=== PATIENT | female | born 2000 | race Caucasian/White ===

== ENCOUNTER 2024-07-03 23:27 | Inpatient (IN) | payer BC, SELFPAY ==
[2024-07-03 15:29] VITALS: BP 147/91
[2024-07-03 16:04] LABS: HCG, Serum Qualitative Screen Negative
[2024-07-03 16:13] LABS: ALT (SGPT) 38 U/L (0-35); AST (SGOT) 37 U/L (14-36); Albumin 4.8 g/dl (3.5-5.0); Alkaline Phosphatase 66 U/L (38-126); Blood Urea Nitrogen 8 mg/dl (7-17); Carbon Dioxide 23 mmol/L (22-30); Chloride 94 mmol/L (98-107); Glucose 131 mg/dl (70-99); Lipase 122 U/L (23-300); Potassium 4.8 mmol/L (3.5-5.1); Sodium 133 mmol/L (135-145); Total Bilirubin 0.5 mg/dl (0.2-1.3); eGFR > 60.00
[2024-07-03 16:49] LABS: % Basophils 0.3 % (0-2); % Immature Granulocytes 0.7 % (0-0.5); % Lymphocytes 5.9 % (20.5-51.1); % Monocytes 3.4 % (1.7-9.3); % Neutrophils 89.7 % (42.2-75.2); Absolute Basophils 0.1 10^3/uL (0-0.2); Absolute Immature Granulocytes 0.2 10^3/uL (0-0.05); Absolute Lymphocytes 1.4 10^3/uL (1.2-3.4); Absolute Monocytes 0.8 10^3/uL (0.1-0.6); Absolute Neutrophils 21.9 10^3/uL (1.4-6.5); Hematocrit 43.4 % (37.0-47.0); Mean Corp Hgb Conc. 34.6 g/dL (33.0-37.0); Mean Corpuscular Hgb 27.8 pg (27.0-31.0); Mean Corpuscular Volume 80.4 fL (81.0-99.0); Mean Platelet Volume 10.1 fL (7.4-10.4); Nucleated Red Blood Cells % 0 %; Platelet Count 354 10^3/uL (130-400); Red Cell Dist. Width 11.9 % (11.5-14.5); White Blood Cell Count 24.4 10^3/uL (4.8-10.8)
--- NOTE | 2024-07-03 17:15 | ED.GENMED ---
History of Present Illness
General
Chief Complaint: Abdominal Pain
Time Seen by Provider: 07/03/24 16:48
History of Present Illness
History of Present Illness:
Patient is a 24-year-old woman recently diagnosed with strep currently on amoxicillin presenting to the emergency department with abdominal pain. Patient states that last night she developed a heartburn sensation. She did have a cheeseburger last
night. She has tried multiple ezec-rje-eprfegj medicine such as Gas-X, Tums, Nexium without relief. She then developed some vomiting and nausea. She has had decreased p.o. secondary to the nausea. No family members with similar symptoms.
Patient does state that she is currently on amoxicillin and has a few days left. Her sister did get her gallbladder removed at the age of 17. She has occasionally had the symptoms after eating but none recently. No fevers or chills. No
difficulty breathing. No diarrhea. No urinary symptoms. No vaginal discharge. She has had her appendix removed but otherwise no surgeries. No family history of cardiac disease or sudden cardiac . She does state that since she has been
here she has been able to tolerate sips of water.
Phy Exam
Physical Exam
Physical Exam:
GENERAL: in no acute distress
HEENT: normocephalic, extraocular movements intact, moist oral mucosa
NECK: normal inspection
RESPIRATORY: no respiratory distress, clear to auscultation bilaterally
CARDIOVASCULAR: regular rate and rhythm
ABDOMEN/: soft, non-distended, epigastric and right upper quadrant tenderness to palpation, no rebound or guarding
EXTREMITIES: non-tender, no edema/swelling
NEUROLOGIC: awake and alert, moves all extremities
SKIN: warm
Course
Orders/Labs/Results
Orders:
Orders
07/03/24 15:32
Test Result ONCE
07/03/24 15:36
Complete Blood Count/With Diff Urgent
Comprehensive Metabolic Panel Urgent
HCG, Serum Qualitative Screen Urgent
Lipase Urgent
07/03/24 17:06
Mag Hydrox/Al Hydrox/Simeth [Maalox] 30 ml PO NOW STA
07/03/24 17:11
Famotidine [Pepcid] 20 mg PO NOW STA
Ondansetron HCl [Zofran] 4 mg PO NOW STA
Viscous Lidocaine 2% [Xylocaine Viscous Cup] 15 ml PO ONCE ONE
US Abdomen Complete/Upper Urgent
Comment:
Reason For Exam: RUQ and epigastic pain
07/03/24 19:34
Piperacillin/Tazo 4.5 Gram [Zosyn] 4.5 gram in 100 ml IV NOW
Abnormal Lab Results
07/03/24
15:36
WBC 24.4 H 10^3/uL
(4.8-10.8)
MCV 80.4 L fL
(81.0-99.0)
Abs Immat Gran (auto) 0.2 H 10^3/uL
(0-0.05)
Absolute Neuts (auto) 21.9 H 10^3/uL
(1.4-6.5)
Absolute Monos (auto) 0.8 H 10^3/uL
(0.1-0.6)
Immature Gran % 0.7 H %
(0-0.5)
Neutrophils % 89.7 H %
(42.2-75.2)
Lymphocytes % 5.9 L %
(20.5-51.1)
Sodium 133 L mmol/L
(135-145)
Chloride 94 L mmol/L
(98-107)
Glucose 131 H mg/dl
(70-99)
AST 37 H U/L
(14-36)
ALT 38 H U/L
(0-35)
07/03/24 15:36
07/03/24 15:36
Vital Signs
Initial and Last Documented VS:
Initial Vital Signs
Temp Pulse Resp BP Pulse Ox
97.6 F 97 16 147/91 98
07/03/24 15:29 07/03/24 15:29 07/03/24 15:29 07/03/24 15:07/03/24 15:29
Last Documented Vital Signs
Temp Pulse Resp BP Pulse Ox
97.6 F 97 16 147/91 98
07/03/24 15:29 07/03/24 15:29 07/03/24 15:29 07/03/24 15:29 07/03/24 15:29
MDM/Problems Addressed
Differential Diagnosis Includes:
Patient is a 24-year-old woman presenting to the emergency department with 1 day of epigastric and right upper quadrant abdominal pain. Vitals are unremarkable and exam does show woman who is well-appearing with right upper quadrant and epigastric
tenderness. Differential is broad but consists of cholecystitis versus pancreatitis versus gastritis versus peptic ulcer disease. Will check blood work, test. Will obtain ultrasound. Will give GI cocktail and antiemetics.
*Critical Care Note
Total Time (30-74mins, 75-104mins- exclusive of procedures): Not Applicable
Update Note
Update Note:
On reevaluation patient states that the heartburn has gone away however she still having residual right upper quadrant tenderness. Ultrasound per my interpretation with gallbladder wall thickening as well as a large gallstone. Per the official
read that is consistent with cholecystitis. Discussed with general surgery who accepted patient to their service. Will start IV antibiotics.
ED Attending Note
-
Portions of this chart may have been created with voice recognition software.� Occasional wrong word or��sound alike� substitutions may have occurred due to the inherent limitations of voice recognition software.
Discharge Plan
Departure
Prescriptions:
No Action
azithromycin 200 MG/5 ML suspension for reconstitution
200 mg PO DAILY Qty: 20 0RF
Rx Instructions:
1 teaspoon daily for 4 days
Referrals:
Anabela Fagan MD [Family Provider] -
Interventions
Interventions:
MX-Hmuxmx-Tgbwrbgvix Assessment Last Done: 07/03/24 19:02
Discharge Date and Time
Print Language: FRISIAN
[2024-07-03] MEDS: MAALOX 30 ML PO (17:24)
[2024-07-03] MEDS: ZOFRAN 4 MG PO (17:25)
[2024-07-03] MEDS: PEPCID 20 MG PO (17:25)
[2024-07-03] MEDS: XYLOCAINE VISCOUS CUP 15 ML PO (17:25)
[2024-07-03] MEDS: ZOSYN 100 IV (19:46)
[2024-07-03 19:55] VITALS: BP 132/92
[2024-07-04] VITALS: BP 120/80
[2024-07-04] MEDS: FLUSH (NSS) 1 FLUSH IV (00:15)
[2024-07-04] MEDS: DILAUDID 0.25 MG IV ×2 (00:16→15:28)
[2024-07-04 01:42] VITALS: BP 129/96
[2024-07-04 01:43] VITALS: BMI 29.6
[2024-07-04] MEDS: NSS 1000 IV ×2 (02:24→16:11)
[2024-07-04] MEDS: ZOSYN 50 IV ×4 (02:24→20:09)
--- NOTE | 2024-07-04 02:50 | HPS.HSE ---
Family Physician
-
Family Physician: Anabela Fagan
Chief Complaint
-
'Abdomen pain'
History of Present Illness
24 y/o patient presents to ER with the complain of abdomen pain. Reports she developed heart burn sensation yesterday evening 07/02 after having cheeseburger. She got nauseous which wasn't relieved with Gas-X, Tums, Nexium. She then developed some
vomiting along with feeling nausea. Reports she has had this symptoms in the past after eating but nothing recently till now. Reports chills, no fever, Denies chest pain, shortness of breath. Denies any blood in the emesis or BM. Voiding without
difficulty. Sister's Gallbladder was removed at the age of 17. Patient recently diagnosed with Strep and is on antibiotic Amoxicillin.
Medical History
Past Medical History
Past Medical History: Reports None
Past Surgical History: Reports Appendectomy
Social History
Tobacco: Non-smoker
Alcohol: None
Drug: None
Living: With Family
Family History
Family History: Not pertinent
Allergies / Home Medications
Allergies reflects when Allergies were last updated in [facility] [employer].
Home Medications with original date entered in [facility]
Allergy/Medication List:
Allergies
Allergy/AdvReac Type Severity Reaction Status Date / Time
environmental allergies Allergy nasal Uncoded 08/27/14 07:23
symptoms
Home Medications
norethindrone 1 mg-ethinyl estradiol 20 mcg (24)-iron 75 mg (4) tablet (Blisovi 24 Fe) 1 tab PO HS Hormonal Agent 07/03/24
Review of Systems
-
History Source: Patient
A 12 point ROS was completed and negative except as noted: Yes
Constitutional: Reports Chills
EENT: Reports No Symptoms
Respiratory: Reports No Symptoms
Cardiac: Reports No Symptoms
Abdomen/GI: Reports Abdominal Pain, Nausea and Vomiting
: Reports No Symptoms
Musculoskeletal: Reports No Symptoms
Skin: Reports No Symptoms
Neurological: Reports No Symptoms
Endocrine: Reports No Symptoms
Hematologic/Lymphatic: Reports No Symptoms
Psych: Reports No Symptoms
Physical Exam
Vital Signs
Vital Signs
Temp Pulse Resp BP Pulse Ox
97.5 F 108 16 129/96 95
07/04/24 01:42 07/04/24 01:42 07/04/24 01:42 07/04/24 01:42 07/04/24 01:42
Physical Exam
General: Well Developed, Well Nourished and No Apparent Distress
HEENT: NormoCephalic, Moist mucous membranes and Atraumatic
Respiratory: Clear and Non Labored Respirations
Cardiac: S1/S2 and Regular Rhythm
Breast: Deferred by me
GI: Soft, Non Distended, Normal Bowel Sounds and Tender (epigastric, RUQ)
Rectal: Deferred by Provider
Genito-urinary: Deferred by me
Musculoskeletal: No Clubbing, No Cyanosis and No Edema
Skin: Warm and Dry
Neuro: Awake, AO x 3 and Nonfocal/grossly intact
Hematologic/Lymphatic: No Lymphadenopathy
Psych: Calm and Intact Judgment/Insight
Laboratory Results
-
07/03/24 15:36
07/03/24 15:36
Laboratory Results
Total Bilirubin 0.5 mg/dl (0.2-1.3) 07/03/24 15:36
AST 37 U/L (14-36) H 07/03/24 15:36
ALT 38 U/L (0-35) H 07/03/24 15:36
Alkaline Phosphatase 66 U/L (38-126) 07/03/24 15:36
Lipase 122 U/L (23-300) 07/03/24 15:36
Data Reviewed
-
Ultrasound: Report Reviewed by me
Lab Data: Labs Reviewed by me
Impression/Plan
-
24 y/o patient presenting to ER with the complaint of 1 day of epigastric and right upper quadrant abdominal pain associated with nausea, vomiting and chills.
# Abdomen pain likely due to Acute cholecystitis.
-US abdomen: Large gallstone in gallbladder neck with associated gallbladder wall thickening and pericholecystic fluid concerning for acute cholecystitis
-WBC 24.4
-maintain NPO
-Continue IV fluids
-Continue IV Dilaudid, Toradol
-Continue IV Zofran
-Continue IV Zosyn
-Admit to Dr. Simmons
# Hyponatremia likely due to vomiting
-continue IV fluids
-labs in AM
#Diagnosed Strep throat outpatient
-continue IV Zosyn
Full code
DVT Prophylaxis: SCD's
[2024-07-04 07:43] VITALS: BP 119/78
[2024-07-04 08:51] LABS: Hematocrit 43.6 % (37.0-47.0); Hemoglobin 15.2 g/dL (12.0-16.0); Mean Corp Hgb Conc. 34.9 g/dL (33.0-37.0); Mean Corpuscular Hgb 28.7 pg (27.0-31.0); Mean Corpuscular Volume 82.4 fL (81.0-99.0); Mean Platelet Volume 10.5 fL (7.4-10.4); Platelet Count 314 10^3/uL (130-400); Red Blood Cell Count 5.29 10^6/uL (4.20-5.40); Red Cell Dist. Width 12.1 % (11.5-14.5); White Blood Cell Count 12.8 10^3/uL (4.8-10.8)
[2024-07-04 10:05] LABS: Blood Urea Nitrogen 9 mg/dl (7-17); Calcium 9.5 mg/dl (8.4-10.2); Carbon Dioxide 22 mmol/L (22-30); Chloride 101 mmol/L (98-107); Estimated Creatinine Clearance 96 ml/min; Glucose 89 mg/dl (70-99); Potassium 4.5 mmol/L (3.5-5.1); Sodium 138 mmol/L (135-145); eGFR > 60.00
[2024-07-04] MEDS: TORADOL 10 MG IV ×2 (10:34→23:22)
--- NOTE | 2024-07-04 13:37 | W.PN.GS2 ---
Today's Communication / Plan
-
clears
abx
OR Saturday
Assessment / Plan
-
24 y/o patient presenting to ER with the complaint of 1 day of epigastric and right upper quadrant abdominal pain associated with nausea, vomiting and chills with acute cholecystitis.
- Continue on clear liquids
- Continue IV antibiotics and IVFs
- Plan for OR Saturday
Subjective Data
-
Date of Service: July 04, 2024
Patient states she has right sided pain. She denies nausea or vomiting. She is tolerating clears.
Objective Data
-
Intake and Output
07/03/24 07/04/24 07/05/24
06:59 06:59 06:59
Intake Total 0 / 0
Balance 0 / 0
Intake:
Oral fluids 0 / 0
Vital Signs
Temp Pulse Resp BP Pulse Ox
98.8 F 75 16 119/78 100
07/04/24 07:43 07/04/24 07:43 07/04/24 07:43 07/04/24 07:43 07/04/24 09:18
Lab Results
07/04/24 08:03
07/04/24 08:03
Calcium 9.5 mg/dl (8.4-10.2) 07/04/24 08:03
Total Bilirubin 0.5 mg/dl (0.2-1.3) 07/03/24 15:36
AST 37 U/L (14-36) H 07/03/24 15:36
ALT 38 U/L (0-35) H 07/03/24 15:36
Alkaline Phosphatase 66 U/L (38-126) 07/03/24 15:36
Total Protein 8.0 g/dl (6.3-8.2) 07/03/24 15:36
Albumin 4.8 g/dl (3.5-5.0) 07/03/24 15:36
Physical Exam
-
AAOX3
Abdominal exam: mild tenderness RUQ, soft, non-distended
[2024-07-04 15:45] VITALS: BP 106/68
--- NOTE | 2024-07-04 17:23 | W.PN.UPDATE ---
Update Note
Progress Note Update
Agree with MIXER OPERATOR VACUUM PAN SALT's admission H&P and above PA progress note.
24-year-old female with acute calculus cholecystitis. Mild left lower quadrant tenderness on exam. Mild leukocytosis. Antibiotics, pain control, and clear liquids for now. Anticipate laparoscopic cholecystectomy on Saturday. Patient agreeable.
[2024-07-04 23:30] VITALS: BP 126/78
[2024-07-05] MEDS: ZOSYN 50 IV ×4 (02:13→20:09)
[2024-07-05 07:40] VITALS: BP 93/58
[2024-07-05] MEDS: NSS 1000 IV ×2 (07:41→22:49)
[2024-07-05] MEDS: NSS IV (07:41)
[2024-07-05 09:57] LABS: INR 1.04; PT 13.4 Sec (11.4-14.6)
[2024-07-05 09:58] LABS: APTT 29.3 Sec (23.4-35.0)
[2024-07-05 10:24] LABS: ALT (SGPT) 38 U/L (0-35); AST (SGOT) 30 U/L (14-36); Albumin 3.8 g/dl (3.5-5.0); Alkaline Phosphatase 58 U/L (38-126); Blood Urea Nitrogen 10 mg/dl (7-17); Calcium 9.2 mg/dl (8.4-10.2); Carbon Dioxide 24 mmol/L (22-30); Chloride 103 mmol/L (98-107); Estimated Creatinine Clearance 78 ml/min; Glucose 83 mg/dl (70-99); Potassium 4.1 mmol/L (3.5-5.1); Sodium 140 mmol/L (135-145); Total Bilirubin 0.8 mg/dl (0.2-1.3); Total Protein 6.6 g/dl (6.3-8.2); eGFR > 60.00
[2024-07-05 10:25] LABS: % Basophils 0.3 % (0-2); % Eosinophils 1.7 % (0-6); % Immature Granulocytes 0.4 % (0-0.5); % Lymphocytes 28.7 % (20.5-51.1); % Monocytes 9.3 % (1.7-9.3); % Neutrophils 59.6 % (42.2-75.2); Absolute Eosinophils 0.2 10^3/uL (0-0.7); Absolute Lymphocytes 2.7 10^3/uL (1.2-3.4); Absolute Monocytes 0.9 10^3/uL (0.1-0.6); Absolute Neutrophils 5.6 10^3/uL (1.4-6.5); Hemoglobin 13.7 g/dL (12.0-16.0); Mean Corp Hgb Conc. 33.4 g/dL (33.0-37.0); Mean Corpuscular Hgb 28.5 pg (27.0-31.0); Mean Corpuscular Volume 85.4 fL (81.0-99.0); Mean Platelet Volume 10.6 fL (7.4-10.4); Nucleated Red Blood Cells % 0 %; Platelet Count 233 10^3/uL (130-400); Red Cell Dist. Width 12.2 % (11.5-14.5); White Blood Cell Count 9.4 10^3/uL (4.8-10.8)
[2024-07-05] MEDS: TORADOL 10 MG IV ×2 (11:50→21:43)
--- NOTE | 2024-07-05 12:00 | W.PN.GS2 ---
Today's Communication / Plan
-
low fat
npo midnight
surgery AM
Assessment / Plan
-
24 y/o patient presenting to ER with the complaint of 1 day of epigastric and right upper quadrant abdominal pain associated with nausea, vomiting and chills with acute cholecystitis.
- Advance to low fat
- NPO at midnight
- Continue IV antibiotics and IVFs
- Plan for OR tomorrow
Subjective Data
-
Date of Service: July 05, 2024
Patient states her pain is the same. She has no nausea. She tolerated clears.
Objective Data
-
Intake and Output
07/04/24 07/05/24 07/06/24
06:59 06:59 06:59
Intake Total 0 / 0 2305 / 2305
Balance 0 / 0 2305 / 2305
Intake:
Oral fluids 0 / 0 1380 / 1380
IV fluids (Total) 825 / 825
IV piggybacks 100 / 100
Other:
Number of approximated MODERATE 3
amounts of urine
Vital Signs
Temp Pulse Resp BP Pulse Ox
98.1 F 65 16 93/58 100
07/05/24 07:40 07/05/24 07:40 07/05/24 07:40 07/05/24 07:40 07/05/24 07:52
Lab Results
07/05/24 08:56
07/05/24 08:56
Calcium 9.2 mg/dl (8.4-10.2) 07/05/24 08:56
Total Bilirubin 0.8 mg/dl (0.2-1.3) 07/05/24 08:56
AST 30 U/L (14-36) 07/05/24 08:56
ALT 38 U/L (0-35) H 07/05/24 08:56
Alkaline Phosphatase 58 U/L (38-126) 07/05/24 08:56
Total Protein 6.6 g/dl (6.3-8.2) 07/05/24 08:56
Albumin 3.8 g/dl (3.5-5.0) 07/05/24 08:56
Physical Exam
-
AAOX3
Abdominal exam: mild tenderness RUQ, soft, non-distended
[2024-07-05] MEDS: ZOFRAN 4 MG IV (13:53)
[2024-07-05 15:00] VITALS: BP 95/57
[2024-07-05 18:21] VITALS: BP 120/73
--- NOTE | 2024-07-05 18:45 | PTCARENOTE ---
Patient received from 3W in bed; Family at bedside; Patient states pain is mild but tolerable for her; Patient denies nausea at this time; Call franco within reach; Bed in lowest position, wheels locked; Care ongoing
[2024-07-05 23:11] VITALS: BP 104/66
[2024-07-06] VITALS (8 sets, daily range): BP systolic 110–120; BP diastolic 66–76
[2024-07-06] MEDS: ZOSYN 50 IV ×4 (02:15→21:04)
[2024-07-06] MEDS: TORADOL 10 MG IV ×2 (08:10→18:05)
[2024-07-06] MEDS: NSS 1000 IV (08:11)
--- NOTE | 2024-07-06 09:28 | W.PN.GS2 ---
Today's Communication / Plan
-
OR today
Assessment / Plan
-
This is a 24-year-old female who presented to our hospital on 07/03/2024 with postprandial right upper quadrant pain. Exam, imaging, blood work all consistent with acute cholecystitis versus less likely biliary colic as her pain has been constant.
N.p.o., IV fluids, IV antibiotics.
Plan for OR today. Laparoscopic cholecystectomy with cholangiogram.
Risks/Benefits/Alternatives, expected postoperative course and possible complications (bleeding, infection, injury to surrounding structures, acute/chronic pain) discussed at length. Patient wishes to proceed with surgery. All questions answered.
Consent obtained.
I spent roughly 60 minutes in total for the care of this patient today including direct patient care and counseling, reviewing labs, imaging, coordination of care, as well as documentation.
Time Spent
Total Time Spent with Patient (in minutes): 35
Subjective Data
-
Date of Service: July 06, 2024
Interval Events:
No acute events overnight. Slept well. Pain Controlled but still persistent. Denies Nausea/Vomiting, +bowel function.
Objective Data
-
Intake and Output
07/05/24 07/06/24 07/07/24
06:59 06:59 06:59
Intake Total 2305 / 2305 240 / 240
Balance 2305 / 2305 240 / 240
Intake:
Oral fluids 1380 / 1380 240 / 240
IV fluids (Total) 825 / 825
IV piggybacks 100 / 100
Other:
Number of approximated MODERATE 3 2
amounts of urine
Vital Signs
Temp Pulse Resp BP Pulse Ox
98.0 F 81 16 110/72 98
07/06/24 07:00 07/06/24 07:00 07/06/24 07:00 07/06/24 07:00 07/06/24 08:00
Lab Results
07/05/24 08:56
07/05/24 08:56
Calcium 9.2 mg/dl (8.4-10.2) 07/05/24 08:56
Total Bilirubin 0.8 mg/dl (0.2-1.3) 07/05/24 08:56
AST 30 U/L (14-36) 07/05/24 08:56
ALT 38 U/L (0-35) H 07/05/24 08:56
Alkaline Phosphatase 58 U/L (38-126) 07/05/24 08:56
Total Protein 6.6 g/dl (6.3-8.2) 07/05/24 08:56
Albumin 3.8 g/dl (3.5-5.0) 07/05/24 08:56
Physical Exam
-
GENERAL/NEURO: Awake, Alert, no distress
CHEST: Unlabored breathing on RA
ABDOMEN: Soft, tender palpation the right upper quadrant, nondistended.
--- NOTE | 2024-07-06 09:33 | W.SUR.PREOP ---
Pre-Operative Surgical Note
-
I have examined this patient prior to the performance of the scheduled procedure.
The patient's condition is unchanged from the time of the current History and
Physical and the patient is able to undergo the scheduled procedure.
[2024-07-06] MEDS: DILAUDID 0.25 MG IV ×3 (12:46→21:03)
--- NOTE | 2024-07-06 14:24 | CM ---
Case management following for discharge planning
Pt for Laparoscopic cholecystectomy with cholangiogram today
CM remains available for d/c needs
Plan - anticipate home no needs when medically stable
--- NOTE | 2024-07-06 15:35 | W.IMMPOSTOP ---
Surgical Immed Post Op Note
-
Primary Surgeon: Fermin Crocker MD
Assisting Surgeon: None
Pre-op Diagnosis: Acute cholecystitis
Post-op Diagnosis: Same
Procedure Performed: Laparoscopic cholecystectomy with cholangiogram
Anesthesia Type: General
Specimen / Cultures: Gallbladder and contents
Estimated Blood Loss: 7 cc
Complications: None
Operative Findings: Acutely inflamed, tense gallbladder. Critical view of safety obtained prior to cholangiogram through a very narrow cystic duct which demonstrated no distal filling defects and normal biliary anatomy. Duct ligated with a clip
followed by a 0 PDS Endoloop.
POST OP PLAN:
Imaging: None
Labs: Routine AM
Diet: [Advance to low-fat as tolerated
Analgesia: Tylenol 650mg q6 Joslyn, [place] 5mg q6 PRN, Dilaudid 0.5mg q2h PRN
Neuro/vascular checks: q4h
AC/AP: Hold Therapeutic AC, Ok for DVT PPx
Activity: Ad Nubia
Wound/Incisions/Drains: Routine
Abx: Can continue antibiotics while in house, no antibiotics needed on discharge.
Dispo: RNF, anticipate discharge home tomorrow. Plan of care discussed with patient's father preoperatively and mother postoperatively.
--- NOTE | 2024-07-06 15:39 | OR.RPT ---
Operative Report
Operative Report
Patient Name: Kacie Barba
: 2000
Date of Operation: 07/06/2024
Preoperative Diagnosis: Acute cholecystitis
Postoperative Diagnosis: Same
Procedure(s):
Laparoscopic Cholecystectomy with Cholangiogram
Surgeon(s):
Dr. Crocker
Electric Wheelchair Repairer(s):
RAMIN Zaldivar
Anesthesia: General
Estimated Blood Loss: 7 cc
Urine Output: None
Drains/Lines/Implants: None
Specimens:
1. Gallbladder and contents
HPI/Surgical Indications:
This is a 24-year-old female who presents with 2 days of postprandial right upper quadrant abdominal pain. Exam, labs and imaging are consistent with acute cholecystitis. Risks/Benefits/Alternatives were discussed at length, and the patient agreed
to proceed with surgery.
Operative Findings: Acutely inflamed, tense gallbladder. Critical view of safety obtained prior to cholangiogram through a very narrow cystic duct which demonstrated no distal filling defects and normal biliary anatomy. Duct ligated with a clip
followed by a 0 PDS Endoloop.
Procedure Description:
The patient was brought to the Operating Room and placed in the supine position with the arms out. Following uneventful induction of general endotracheal anesthesia, an orogastric tube was placed. The abdomen was prepped and draped in the usual
sterile fashion. A timeout was performed confirming the procedure, consent, and that IV antibiotics were infused and sequential compression devices were confirmed to be on. The abdomen was entered using an infraumbilical open Josy technique with a
12 mm balloon-tipped trocar. Pneumoperitoneum to 15 mmHg pressure was obtained without difficulty and we confirmed that no injury had occurred during our entry. The patient was positioned in reverse Trendelenberg and rotated with the right side up
slightly. Three (3) 5mm trocars were then placed along the right subcostal margin. The gallbladder was tense and inflamed but we were able to place a locking grasping forceps was placed on the fundus of the gallbladder where it was then retracted
cephalad and to the right. Using appropriate grasping instruments, the peritoneum overlying the triangle of Calot was incised and extended superiorly on both the anterior and posterior gallbladder martínez. The infundibulum was dissected off the
cystic plate. The cystic triangle was dissected until a critical view of safety was achieved. The cystic artery was medialized, dissected and controlled with 2 proximal clips and 1 distal. The cystic duct/gallbladder junction in turn was identified,
dissected circumferentially and a clip was placed. A ductotomy was made and a cholangiocatheter on an Wall clamp was inserted into the cystic duct. A C-arm was draped and brought into the field. An intra-operative cholangiogram was performed and
was noted to have:
No filling defects in the biliary tree
No significant biliary dilation
Brisk flow of contrast into the duodenum
Normal biliary anatomy
The catheter was then removed and the cystic duct was controlled with a clip followed by a 0 PDS Endoloop. After ensuring both the artery and duct were divided, the gallbladder was freed from the liver using electrocautery. There was some spillage
of bile, but no spillage of stones. The gallbladder bed was inspected and excellent hemostasis was obtained. The gallbladder was extracted through the 12 mm trocar site using an endocatch bag. The abdomen was again irrigated and excellent
hemostasis was assured. All remaining trocars were then removed and the pneumoperitoneum was evacuated. The 12 mm trocar site was closed using 0 PDS suture. All trocar sites were closed at the skin level using 4-0 Monocryl followed by Dermabond.
Overall, the patient tolerated the procedure well and was taken to the Recovery Room postoperatively in stable condition.
I was the attending physician and performed the procedure with assistance from the REHABILITATION THERAPIST above I was present for all portions of the case, excluding wound closure.
Fermin Crocker MD
[2024-07-06] MEDS: ZOFRAN 4 MG IV (15:52)
--- NOTE | 2024-07-06 16:39 | PTCARENOTE ---
Pt arrived back to south from PACU s/p lap appy. Pt had 4 incision sites, all TRUMAN, C/D/I. Pt states moderate pain at this time. Care ongoing.
[2024-07-07] MEDS: NSS IV (00:12)
[2024-07-07] MEDS: ZOSYN 50 IV ×2 (02:13→08:33)
[2024-07-07] MEDS: TORADOL 10 MG IV ×2 (02:17→08:37)
[2024-07-07 02:50] VITALS: BP 110/72
--- NOTE | 2024-07-07 07:13 | W.PN.GS2 ---
Today's Communication / Plan
-
-- DC today pending progression
Assessment / Plan
-
Patient is a 24 yo F POD#1 s/p laparoscopic cholecystectomy with IOC
AVSS
No major postoperative concerns. Monitor for pain control and dietary tolerance this morning. Possible DC this afternoon.
-- LFD
-- Pain control: Tylenol, Toradol, Tramadol
-- HLIV
-- Abx: Zosyn while in hospital
-- DVT: Lovenox
-- DC today pending progression
Subjective Data
-
Date of Service: July 07, 2024
No major complaints. Reports some mild soreness. Reports some mild nausea overnight. Symptoms have improved this AM. No fevers or chills. Minimal ambulation. Voiding.
Objective Data
-
Intake and Output
07/06/24 07/07/24 07/08/24
06:59 06:59 06:59
Intake Total 240 / 240 1850 / 1850
Balance 240 / 240 1850 / 1850
Intake:
Oral fluids 240 / 240 1200 / 1200
IV fluids (Total) 600 / 600
IV piggybacks 50 / 50
Other:
Number of approximated MODERATE 2 4
amounts of urine
Vital Signs
Temp Pulse Resp BP Pulse Ox
98.8 F 69 15 110/72 97
07/07/24 02:50 07/07/24 02:50 07/07/24 02:50 07/07/24 02:50 07/07/24 02:50
Lab Results
07/05/24 08:56
07/05/24 08:56
Calcium 9.2 mg/dl (8.4-10.2) 07/05/24 08:56
Total Bilirubin 0.8 mg/dl (0.2-1.3) 09/29/24 08:56
AST 30 U/L (14-36) 07/05/24 08:56
ALT 38 U/L (0-35) H 07/05/24 08:56
Alkaline Phosphatase 58 U/L (38-126) 07/05/24 08:56
Total Protein 6.6 g/dl (6.3-8.2) 07/05/24 08:56
Albumin 3.8 g/dl (3.5-5.0) 07/05/24 08:56
Physical Exam
-
Gen: NAD
Abd: soft, tender to palpation in RUQ, ND, non-peritoneal, incisions c/d/i - no erythema, ecchymosis or drainage
[2024-07-07 07:44] VITALS: BP 124/71
--- NOTE | 2024-07-07 10:05 | CM ---
Pt for probable d/c today
Met with pt and family members at bedside
Pt will have family support at home
Pt will have ride home when discharged
Plan - anticipate home no needs
[2024-07-07] MEDS: TYLENOL 650 MG PO (10:18)
[2024-07-07 11:17] VITALS: BP 115/59
== END 2024-07-07 13:48 | disposition home or self-care (01) | DRG 418 ==
LOC: 2 SOUTH 23:27
PROVIDERS: Emergency Medicine; Nurse Practitioner Gerontology; Physician Assistant; Surgery; ADMITTING PHYSICIAN Surgery; EMERGENCY PHYSICIAN Student in an Organized Health Care Education/Training Program; FAMILY PHYSICIAN Family Medicine
PROC: BF502Z0 Other Imaging of Bile Ducts using Fluorescing Agent, Intraoperative (ICD-10-PCS; 2024-07-06)
PROC: 0FT44ZZ Resection of Gallbladder, Percutaneous Endoscopic Approach (ICD-10-PCS; 2024-07-06)
DX: K80.00 Calculus of gallbladder with acute cholecystitis without obstruction (principal); E87.1 Hypo-osmolality and hyponatremia; J02.0 Streptococcal pharyngitis
CPT/HCPCS: 88304; 74300; 76700; 80048; 80053; 83690; 84703; 85025; 85027; 85610; 85730; 96365; 99284